=== PATIENT | male | born 1990 | race Caucasian/White ===

== ENCOUNTER 2019-03-08 22:11 | Inpatient (IN) | payer SELFPAY ==
[~2019-03-08 22:11] MED LIST: ISOVUE-370 76%-LOCM 1 ML ONE
[2019-03-08 23:04] LABS: #Basophils 0.1 thou/uL (0.0-0.2); #Eosinphils 0.2 thou/uL (0.0-0.7); #Lymphocytes 2.6 thou/uL (1.20-3.40); #Monocytes 0.5 thou/uL (0.11-0.59); #Neutrophils 3.8 thou/uL (1.40-6.50); %Eosinophils 2.7 % (0.0-10.0); %Lymphocytes 36.3 % (21.0-51.0); %Monocytes 6.5 % (0.0-10.0); %Neutrophils 53.6 % (42.0-75.0); Hemoglobin 15.3 g/dL (14.0-18.0); Mean Corpuscular HGB CONC 33.9 g/dL (32.0-36.0); Mean Corpuscular Volume 91.6 fL (78.0-98.0); Platelet Count 188 thou/uL (130-400); RBC Distribution Width 11.6 % (11.5-14.5); Red Blood Cell (RBC) Count 4.93 mill/uL (4.70-6.10); White Blood Cell (WBC) Count 7.1 thou/uL (4.8-10.8)
[2019-03-09 00:04] LABS: ALT (SGPT) 43 U/L (8-55); AST (SGOT) 33 U/L (5-34); Albumin 4.8 g/dL (3.5-5.0); Alkaline Phosphatase 94 U/L (40-150); Anion Gap 17 mmol/L (10-20); BUN (Urea Nitrogen) 7 mg/dL (8.9-20.6); Bilirubin, Total 0.4 mg/dL (0.2-1.2); CRP (Inflammatory) 1.89 mg/dL (= or < 0.5); Calc. Creatinine Clearance 0 mL/min (70-130); Calcium 9.4 mg/dL (7.8-10.44); Carbon Dioxide 22 mmol/L (22-29); Chloride 106 mmol/L (98-107); Estimated GFR-MDRD Greater than 90; Globulin 2.7 g/dL (2.4-3.5); Glucose 89 mg/dL (70-105); Potassium 3.7 mmol/L (3.5-5.1); Protein, Total 7.5 g/dL (6.0-8.3); Sodium 141 mmol/L (136-145)
[2019-03-09] MEDS ORDERED: Ampicillin/Sulbactam 3 GM in Sodium Chloride 0.9% 100 ML IVPB SCH (00:30)
[2019-03-09] MEDS ORDERED: Senokot S 8.6-50 MG TAB PO PRN (02:47)
[2019-03-09] MEDS ORDERED: Sodium Chloride 0.9% 1,000 ML IV SCH (03:00)
[2019-03-09 03:35] LABS: #Eosinphils 0.2 thou/uL (0.0-0.7); #Lymphocytes 2.8 thou/uL (1.20-3.40); #Monocytes 0.6 thou/uL (0.11-0.59); #Neutrophils 3.6 thou/uL (1.40-6.50); %Basophils 0.5 % (0.0-1.0); %Eosinophils 2.5 % (0.0-10.0); %Lymphocytes 39.3 % (21.0-51.0); %Monocytes 8.4 % (0.0-10.0); %Neutrophils 49.3 % (42.0-75.0); Hemoglobin 13.9 g/dL (14.0-18.0); Mean Corpuscular HGB CONC 33.6 g/dL (32.0-36.0); Mean Corpuscular Hemoglobin 30.9 pg (27.0-31.0); Mean Platelet Volume 7.9 fL (7.4-10.4); Platelet Count 163 thou/uL (130-400); RBC Distribution Width 11.6 % (11.5-14.5); Red Blood Cell (RBC) Count 4.49 mill/uL (4.70-6.10); White Blood Cell (WBC) Count 7.2 thou/uL (4.8-10.8)
[2019-03-09] MEDS ORDERED: traMADol HCl 50 MG TAB PO PRN (03:44)
[2019-03-09] MEDS ORDERED: Ondansetron ODT 4 MG TAB SL PRN (03:54)
[2019-03-09] MEDS ORDERED: Ondansetron PF 4 MG/2 ML Vial IVP PRN (03:54)
[2019-03-09 03:55] LABS: Anion Gap 11 mmol/L (10-20); BUN (Urea Nitrogen) 8 mg/dL (8.9-20.6); Calc. Creatinine Clearance 0 mL/min (70-130); Calcium 8.9 mg/dL (7.8-10.44); Carbon Dioxide 25 mmol/L (22-29); Chloride 104 mmol/L (98-107); Estimated GFR-MDRD Greater than 90; Glucose 100 mg/dL (70-105); Potassium 3.9 mmol/L (3.5-5.1); Sodium 136 mmol/L (136-145)
--- NOTE | 2019-03-09 04:23 | HP ---
CHIEF COMPLAINT: Left lower extremity swelling. HISTORY OF PRESENT ILLNESS: The patient is a 28-year-old male, who had a dog bite and came into the hospital on March 06 to the ER for pain to his left leg. At this time, the patient was seen. He had a significant laceration. He had some suturing and was sent home on Augmentin. The patient stated that his erythema worsened. There was some miscommunication stating that the patient was given amoxicillin. However, per the ER records, it was noted that he was given Augmentin. The patient comes in again with worsening erythema to his left lower extremity. He denies any fevers or chills, but felt significant worsening of pain to his left leg. PAST MEDICAL HISTORY: He denies any past medical history. PAST SURGICAL HISTORY: He has had tonsillectomy. SOCIAL HISTORY: He drinks about five drinks per day. Denies any drug use. Chews tobacco. He is a full code. Lives with his family. ALLERGIES: HE HAS NO KNOWN DRUG ALLERGIES. MEDICATIONS: He takes nothing except for the antibiotic, which he does not recall the name. He told me it was amoxicillin. However, the ER records as I mentioned indicate Augmentin. REVIEW OF SYSTEMS: All negative except for the ones mentioned above in the HPI. PHYSICAL EXAMINATION: VITAL SIGNS: Temperature of 98.7, 18, pulse of 103, 142/82, 98% on room air. GENERAL: He is awake, alert, and oriented x3. Does not appear in distress. HEENT: Normocephalic, atraumatic. No lymphadenopathy noted. Pupils are equal and reactive to light. CV: S1 and S2 present. No murmurs, rubs, or gallops. LUNGS: Clear to auscultation. No rhonchi or wheezes noted. ABDOMEN: Soft and nontender. Bowel sounds are present x2. EXTREMITIES: Pedal pulses are present x2. Left leg, he does have a significant erythema to his anterior left leg. He does have a scar to his posterior aspect of his calf area. He has a total of three sites also, one around his popliteal area. Significant erythema and swelling noted to his left leg pain upon palpation and touch. No crepitus noted. Neurovascular davis, no focal deficits noted. SKIN: As I had mentioned earlier. LABORATORY RESULTS: WBC of 7.2, hemoglobin of 13.9, hematocrit of 41.3, and platelets of 163. Chemistry; sodium of 141, potassium of 3.7, BUN of 7, creatinine 0.80. C-reactive protein of 1.87. The patient did have a CT of lower extremity, which is pending read. ASSESSMENT AND PLAN: The patient is a very pleasant 28-year-old male, who comes in with a dog bite. 1. Dog bite. We will start the patient on some Unasyn. Also, Surgery has been consulted. The patient has significant erythema, pain upon palpation. We will prescribe some pain medications. Again, CT is pending. We will continue to follow. 2. Alcohol use. We will continue to monitor patient on MIKE protocol. 3. Deep venous thrombosis prophylaxis. We will put patient on some SCDs. Job ID: [id number]
[2019-03-09] MEDS: Acetaminophen 325 MG TAB PO PRN ×2 (04:24→23:19)
[2019-03-09 06:02] VITALS: BMI 25.1
[2019-03-09] MEDS: Ampicillin/Sulbactam 3 GM in Sodium Chloride 0.9% 100 ML IVPB SCH ×4 (06:09→23:17)
--- NOTE | 2019-03-09 08:10 | CT ---
CT LEFT LEG WITH CONTRAST: Date: 03/08/19 INDICATION: Wound infection. FINDINGS: There is subcutaneous edema of the mid to distal left leg predominantly posteriorly extending into th e medial and lateral aspects of the subcutaneous tissues of the mid to distal left leg, as well. Ther e is no drainable, focal fluid collection to indicate abscess. Fascial edema is seen overlying the mu sculature of the posterior leg notably overlying the medial aspect of the gastrocnemius. There is no evidence of acute fracture. No osseous destructive lesion is identified. The imaged knee joint is debbi ssly unremarkable. IMPRESSION: 1. Soft tissue edema of the mid to distal left leg indicative of cellulitis. No drainable abscess or evidence of osteomyelitis. 2. No evidence of soft tissue gas. POS: [facility]
[2019-03-09] MEDS: Enoxaparin Sodium 40 MG/0.4 ML SYRINGE SC SCH (08:40)
--- NOTE | 2019-03-09 13:39 | PDOC.PN ---
- Subjective Encounter Start Date: 03/09/19 Encounter Start Time: 08:00 Subjective: feels better, had his sutures removed yesterday -: family at bedside -: is able to bear weight on his leg now with pain - Objective Resuscitation Status - Order Detail: 03/09/19 02:47 Resuscitation Status Routine Resuscitation Status: FULL: Full Resuscitation MAR Reviewed: Yes Vital Signs & Weight: Vital Signs (12 hours) Temp Pulse Resp BP BP Pulse Ox 03/09/19 12:00 98.1 F 81 18 120/71 99 03/09/19 08:38 95 03/09/19 07:42 98.2 F 59 L 16 115/68 95 03/09/19 04:00 98.1 F 74 18 143/75 H 96 Weight Weight 165 lb 5 oz Result Diagrams: 03/09/19 03:26 03/09/19 03:26 Phys Exam - Physical Examination HEENT: PERRLA, moist MMs Neck: no JVD, supple Respiratory: no wheezing, no rales Cardiovascular: RRR, no significant murmur Gastrointestinal: soft, non-tender, positive bowel sounds Musculoskeletal: pulses present left leg laceration due to dog bite, edema+ Neurological: non-focal, moves all 4 limbs Psychiatric: normal affect, A&O x 3 Dx/Plan (1) Dog bite Code(s): W54.0XXA - BITTEN BY DOG, INITIAL ENCOUNTER Status: Acute Qualifiers: Encounter type: subsequent encounter Qualified Code(s): W54.0XXD - Bitten by dog, subsequent encounter (2) Left leg cellulitis Code(s): L03.116 - CELLULITIS OF LEFT LOWER LIMB Status: Acute - Plan is on unasyn -: dc iv fluids -: ultram prn -: to ambulate as tolerated -: dc plan in am * . Review of Systems - Medications/Allergies Allergies/Adverse Reactions: Allergies Allergy/AdvReac Type Severity Reaction Status Date / Time No Known Allergies Allergy Verified 03/09/19 06:15 Medications: Current Medications Acetaminophen (Tylenol) 650 mg PO Q4H PRN PRN Reason: Headache/Fever/Mild Pain (1-3) Last Admin: 03/09/19 04:24 Dose: 650 mg Enoxaparin Sodium (Lovenox) 40 mg SC 0900 SURYA Last Admin: 03/09/19 08:40 Dose: 40 mg Sodium Chloride (Normal Saline 0.9%) 1,000 mls @ 75 mls/hr IV .[id number] [facility] Last Admin: 03/09/19 04:26 Dose: 1,000 mls Ampicillin Sodium/Sulbactam (Sodium 3 gm/ Sodium Chloride) 100 mls @ 200 mls/ hr IVPB Q6HR [facility] Last Admin: 03/09/19 12:37 Dose: 100 mls Pneumococcal Polyvalent Vaccine (Pneumovax 23) 0.5 ml IM .ONCE ONE Stop: 03/09/19 21:01 Senna/Docusate Sodium (Senokot S) 2 tab PO BID PRN PRN Reason: Constipation Sodium Chloride (Flush - Normal Saline) 10 ml IVF Q12HR [facility] Last Admin: 03/09/19 08:42 Dose: Not Given Sodium Chloride (Flush - Normal Saline) 10 ml IVF PRN PRN PRN Reason: Saline Flush Tramadol HCl (Ultram) 50 mg PO Q6H PRN PRN Reason: Moderate Pain (4-6)
--- NOTE | 2019-03-09 15:44 | CON ---
DATE OF CONSULTATION: 03/09/2019 HISTORY OF PRESENT ILLNESS: The patient is a 28-year-old male, who sustained a dog bite on the left calf both in the anterior and posterior aspect of the mid calf on March 06 by a Border Collie. The patient developed erythema and presented to the emergency room. He was started on antibiotics, but unfortunately the erythema and swelling increased and the patient presented back to the emergency room. He had no fever or chills, but there was worsening in the pain in the left leg as well as the swelling and erythema. PHYSICAL EXAMINATION: The patient has laceration on the anterior medial and posterior aspect of the mid left leg. The erythema that he had on the pictures that were obtained previously, has significantly decreased. The lacerations are healing well. There is no active drainage. No red streaks. The swelling has decreased. The patient is able to dorsiflex and plantar flex the ankle well, and flex and extend the toes well without pain. IMPRESSION: Cellulitis of the left leg. PLAN: The patient has made good progress with the IV antibiotics. There is no indication for any type of surgery. He has no abscess that is formed and will not require any other additional treatment besides the antibiotics. We will sign off. Job ID: [id number]
[2019-03-10] MEDS: Ampicillin/Sulbactam 3 GM in Sodium Chloride 0.9% 100 ML IVPB SCH (05:24)
[2019-03-10 07:33] VITALS: BP 110/67; TEMP 98.2
[2019-03-10] MEDS: Enoxaparin Sodium 40 MG/0.4 ML SYRINGE SC SCH (09:39)
--- NOTE | 2019-03-12 13:47 | DIS ---
DATE OF ADMISSION: 03/09/2019 DATE OF DISCHARGE: 03/10/2019 DISCHARGE DISPOSITION: Home. PRIMARY DISCHARGE DIAGNOSIS: Dog bite over left leg with cellulitis. PROCEDURES DONE DURING HOSPITALIZATION: CT of left lower extremity done showed soft tissue edema of the mid to distal left leg indicative of cellulitis. No drainable abscess or evidence of osteomyelitis was seen. No evidence of soft tissue gas. This CAT scan was with contrast. H and H 13 and 41, platelet count 163, white count of 7. Sed rate was 5. CRP 1.89. BUN 8, creatinine 0.7. INPATIENT CONSULT: Dr. Martinez for Orthopedic Surgery. DISCHARGE MEDICATIONS: 1. Augmentin 875 mg p.o. twice daily for another six days. 2. Motrin p.r.n. for pain. ALLERGIES: NO KNOWN DRUG ALLERGIES. DISCHARGE PLAN: The patient to follow up with primary care physician in 1 week. BRIEF COURSE DURING HOSPITALIZATION: The patient initially was brought to emergency room after he was bitten by a dog and had laceration over the left leg. He had suturing done and was sent home from ER on March 06. The patient started to have worsening edema and redness, hence came back to the emergency room. His sutures were removed and the patient was placed on IV antibiotics for cellulitis of left leg. He has had consultation with Dr. Martinez for Orthopedic Surgery. The patient's erythema and edema are receding. He is responded well to antibiotics. His laceration is healing as well. He has been advised to stay home for a week until the wound is completely healed prior to going back to work. He needs to continue Augmentin for another 6 days. Wound care instructions had been given by me personally to the patient. He is hemodynamically stable. Please note, I have seen and examined the patient on the day of discharge. Job ID: [id number]
== END 2019-03-10 10:16 | disposition home or self-care (01) | DRG 603 ==
LOC: ERS 22:11 → T4-B 03-09 02:11
PROVIDERS: ADMIT Internal Medicine; ATTEND Internal Medicine
DX: L03.116 Cellulitis of left lower limb (principal); F10.10 Alcohol abuse, uncomplicated; S81.852D Open bite, left lower leg, subsequent encounter; W54.0XXD Bitten by dog, subsequent encounter
CPT/HCPCS: 36415; 80048; 80053; 85025; 85652; 86140; 96361; 96365; J0295; J1650; J3490; Q9966